=== PATIENT | female | born 1965 | race Caucasian/White ===

== ENCOUNTER 2016-08-20 15:40 | Emergency (ER) | payer OTHER ==
[~2016-08-20] VITALS: Ht 167.6 cm; Wt 101.9 kg
[~2016-08-20 15:40] MED LIST: PRINIVIL20 MG; ZANTAC300 MG
[2016-08-20 18:03] VITALS: BP 131/75
== END 2016-08-20 18:10 | disposition home or self-care (01) ==
LOC: EME 15:40
DX: T59.4X1A Toxic effect of chlorine gas, accidental (unintentional), initial encounter (principal); R05 Cough; R06.02 Shortness of breath; Y92.008 Other place in unspecified non-institutional (private) residence as the place of occurrence of the external cause; E11.9 Type 2 diabetes mellitus without complications; I10 Essential (primary) hypertension; K21.9 Gastro-esophageal reflux disease without esophagitis
CPT/HCPCS: 71020; 94799; 99281; 99284